=== PATIENT | female | born 1950 | race Caucasian/White ===

== ENCOUNTER 2022-03-23 08:37 | Outpatient (CLI) | payer MEDICARE, SELFPAY ==
[2022-03-23 18:52] LABS: Alanine Aminotransferase 30 U/L (6-35); Albumin Level 4.4 g/dL (3.5-5.1); Alkaline Phosphatase 106 U/L (38-126); Anion Gap 7 mmol/L (8-16); Aspartate Amino Transferase 55 U/L (14-36); Bilirubin,Total 0.8 mg/dL (0.2-1.3); Blood Urea Nitrogen 16 mg/dL (7-17); Calcium 9.4 mg/dL (8.4-10.2); Carbon Dioxide 28 mmol/L (22-30); Chloride 107 mmol/L (98-107); Cholesterol 170 mg/dL (0-200); Estimated Glomerular Filt Rate 55; Glucose 108 mg/dL (65-110); HDL Direct 46 mg/dL; Potassium 4.6 mmol/L (3.4-5.0); Sodium 142 mmol/L (137-145); Triglycerides 157 mg/dL (<150)
[2022-03-23 18:58] LABS: Basophils Percent Auto 0.5 % (0.2-1.2); Eosinophils Absolute Auto 0.1 K/mm3 (0-0.3); Eosinophils Percent Auto 1.6 % (0-4.4); Hematocrit 46.7 % (37.0-47.0); Immature Granulocyte Absolute 0.01 K/mm3 (0.00-0.031); Immature Granulocyte Percent A 0.2 % (0-0.5); Lymphocytes Percent Auto 30.5 % (18.3-44.2); Mean Corpuscular HGB Conc 32.1 g/dl (32-36); Mean Corpuscular Hemoglobin 29.6 pg (26-34); Mean Corpuscular Volume 92.3 fl (80-100); Mean Platelet Volume 11.1 fl (7.4-10.4); Monocytes Absolute Auto 0.6 K/mm3 (0.1-0.6); Monocytes Percent Auto 10.2 % (2.6-8.5); Neutrophils Absolute Auto 3.2 K/mm3 (1.3-6.7); Platelet Count Result 240 k/mm3 (150-375); Red Blood Count 5.06 M/mm3 (4.2-5.4); Red Cell Distribution Width 13.6 % (11.5-14.5); White Blood Count 5.6 K/mm3 (4.5-10.0)
[2022-03-23 19:04] LABS: LDL Cholesterol Direct 77 mg/dL
== END 2022-03-23 08:38 | disposition home or self-care (01) ==
LOC: ANHBWCLAB 08:41
PROVIDERS: PCP Family Medicine; Visit Provider Family Medicine
DX: E66.9 Obesity, unspecified (principal)
CPT/HCPCS: 36415; 80053; 80061; 85025

== ENCOUNTER 2022-05-04 08:58 | Outpatient (CLI) | payer MEDICARE, SELFPAY ==
[2022-05-04 20:48] LABS: Alanine Aminotransferase 27 U/L (6-35); Albumin Level 4.3 g/dL (3.5-5.1); Alkaline Phosphatase 103 U/L (38-126); Aspartate Amino Transferase 41 U/L (14-36); Bilirubin,Total 0.6 mg/dL (0.2-1.3)
[2022-05-04 20:54] LABS: Hepatitis B Surface Antigen Negative (Negative)
[2022-05-04 21:00] LABS: HAV RESULT Negative (Negative); Hepatitis B Core IgM Result Negative (Negative)
[2022-05-04 21:11] LABS: Hepatitis C Virus Antibody Negative (Negative)
== END 2022-05-04 08:59 | disposition home or self-care (01) ==
LOC: ANHBWCLAB 09:00
PROVIDERS: PCP Family Medicine; Visit Provider Family Medicine
DX: I16.0 Hypertensive urgency (principal); R74.01 Elevation of levels of liver transaminase levels
CPT/HCPCS: 36415; 80074; 80076

== ENCOUNTER 2022-05-16 09:01 | Outpatient (CLI) | payer MEDICARE, SELFPAY ==
--- NOTE | ~2022-05-16 | US_ITS ---
Limited Abdominal Sonogram: Real-time sonographic imaging of the right upper quadrant was performed. Clinical History: Abnormal LFTs Findings: The liver appears echogenic, with no evidence of mass lesion or bile duct dilatation. Main portal vein demonstrates normal direction of flow. The gallbladder is well distended, and appears no rmal with no evidence of gallstone or wall thickening. The common bile duct measures 6 mm. The visua lized pancreas, aorta, and IVC are unremarkable. Impression: Diffuse fatty infiltration of the liver. Reviewed, dictated and finalized at location M. T CATCHER Impression: Diffuse fatty infiltration of the liver.
== END 2022-05-16 09:02 | disposition home or self-care (01) ==
PROVIDERS: PCP Family Medicine; Visit Provider Family Medicine
DX: R74.01 Elevation of levels of liver transaminase levels (principal); K76.0 Fatty (change of) liver, not elsewhere classified
CPT/HCPCS: 76705

== ENCOUNTER 2022-05-27 10:31 | Outpatient (CLI) | payer MEDICARE, SELFPAY ==
--- NOTE | ~2022-05-27 | MM_ITS ---
EXAMINATION: MM screening nhan BI w micky HISTORY: Screening mammogram TECHNIQUE: Craniocaudal and mediolateral oblique 3-D tomosynthesis images were obtained and synthetic 2-D images were generated. CAD analysis was submitted and interpreted. COMPARISON: 03/30/2014 bilateral screening mammogram BREAST PARENCHYMAL COMPOSITION: The breasts are almost entirely fatty. FINDINGS: There is no evidence of suspicious mass, calcification, or architectural distortion to sugg est malignancy in either breast. There has been no suspicious interval change. IMPRESSION: 1. No mammographic evidence of malignancy. 2. Recommend routine screening mammography in one year. BI-RADS Category 1: Negative Reviewed, dictated and finalized at location A. IO ENGINEER
== END 2022-05-27 10:32 | disposition home or self-care (01) ==
LOC: ANHIMG 10:33
PROVIDERS: PCP Family Medicine; Visit Provider Family Medicine
DX: Z12.31 Encounter for screening mammogram for malignant neoplasm of breast (principal)
CPT/HCPCS: 77063; 77067

== ENCOUNTER 2022-07-05 07:48 | Outpatient (CLI) | payer MEDICARE, SELFPAY ==
--- NOTE | ~2022-07-05 | DEXA_ITS ---
Bone Density Report Name: ANTONY VALENZUELA Age: 71 Sex: Female Ethnicity: White Date of : 1950 Indication: postmenopausal; screening for osteoporosis; parental hip fracture; Referring Provider: SANDEEP GUTIERREZ Study: Bone densitometry was performed. Exam Date: July 05, 2022 Accession number: [id number] Bone Density: Region BMD T-score Z-score Classification AP Spine(L1-L4) 1.208 1.5 3.7 Normal Femoral Neck (Left) 0.686 -1.5 0.5 Osteopenia Total Hip (Left) 0.958 0.1 1.8 Normal Femoral Neck (Right) 0.726 -1.1 0.8 Osteopenia Total Hip (Right) 0.963 0.2 1.8 Normal Total Hip Mean 0.960 0.2 1.8 Normal World Health Organization criteria for BMD impression classify patients as: Normal (T-score at or above -1.0), Osteopenia (T-score between -1.0 and -2.5), or Osteoporosis (T-score at or below -2.5). 10-year Fracture Risk(1): Major Osteoporotic Fracture 15% Hip Fracture 4.8% Reported Risk Factors: [place] (), Neck BMD=0.686, BMI=34.6, parental fracture (1) FRAX(R) Version 3.08. Fracture probability calculated for an untreated patient. Fracture probability may be lower if the patient has received treatment. Clinical Information Provided by Patient: Parent has had a hip fracture Has used the following medications: Calcium Patient maximum height was 65 Menopause Age: 44 Drinks caffeinated beverages Onset of menses at age 9 Number of children 2 Impression: The patient has low bone mass, based on the Left Femoral Neck T-score. The patient has an estimated ten-year risk of hip fracture of 4.8% and an estimated ten-year risk of major fracture of 15%, based on the WHO FRAX algorithm. The patient has risk factors, including: parental hip fracture. Discussion: BONE DENSITY IS LOW AT ONE OR MORE SKELETAL SITES. THE PATIENT'S BMD AND CLINICAL RISK FACTORS CONTRIBUTE TO THIS PATIENT'S INCREASED RISK OF FRACTURE. This patient's lowest T-score is low at one or more skeletal sites. It meets the World Health Organization's (WHO) criteria for ?low bone mass? (T-score between -1.0 and -2.5). The patient's 10-year risk of hip fracture as calculated by FRAX exceeds the threshold where pharmacological therapy is recommended by the National Osteoporosis Foundation (NOF). However, all treatment decisions require clinical judgment and consideration of individual patient factors, including patient preferences, comorbidities, previous drug use, risk factors not captured in the FRAX model (e.g., frailty, falls, vitamin D deficiency, increased bone turnover, interval significant decline in bone density) and possible under or overestimation of fracture risk by FRAX. The patient should follow a healthful lifestyle (good nutrition with adequate calcium and vitamin D, and appropriate weight-bearin
== END 2022-07-05 07:49 | disposition home or self-care (01) ==
LOC: ANHIMG 07:49
PROVIDERS: PCP Family Medicine; Visit Provider Family Medicine
DX: Z78.0 Asymptomatic menopausal state (principal); M85.852 Other specified disorders of bone density and structure, left thigh; M85.851 Other specified disorders of bone density and structure, right thigh
CPT/HCPCS: 77080

== ENCOUNTER 2023-03-29 09:50 | Outpatient (CLI) | payer MEDICARE, SELFPAY ==
[2023-03-29 21:01] LABS: Anion Gap 6 mmol/L (8-16); Blood Urea Nitrogen 17 mg/dL (7-17); Calcium 9.7 mg/dL (8.4-10.2); Carbon Dioxide 28 mmol/L (22-30); Chloride 105 mmol/L (98-107); Cholesterol 194 mg/dL (0-200); Estimated Glomerular Filt Rate 49; Glucose 96 mg/dL (65-110); HDL Direct 61 mg/dL; Potassium 4.4 mmol/L (3.4-5.0); Sodium 139 mmol/L (137-145); Triglycerides 153 mg/dL (<150)
[2023-03-29 21:08] LABS: Basophils Percent Auto 0.3 % (0.2-1.2); Eosinophils Absolute Auto 0.1 K/mm3 (0-0.3); Hematocrit 46.6 % (37.0-47.0); Hemoglobin 14.6 g/dL (12.0-15.0); Immature Granulocyte Absolute 0.01 K/mm3 (0.00-0.031); Immature Granulocyte Percent A 0.2 % (0-0.5); Lymphocytes Percent Auto 26.8 % (18.3-44.2); Mean Corpuscular HGB Conc 31.3 g/dl (32-36); Mean Corpuscular Hemoglobin 29.7 pg (26-34); Mean Corpuscular Volume 94.9 fl (80-100); Mean Platelet Volume 11.2 fl (7.4-10.4); Monocytes Absolute Auto 0.6 K/mm3 (0.1-0.6); Monocytes Percent Auto 9.4 % (2.6-8.5); Neutrophils Absolute Auto 3.7 K/mm3 (1.3-6.7); Neutrophils Percent Auto 62.3 % (45.5-73.1); Platelet Count Result 256 k/mm3 (150-375); Red Blood Count 4.91 M/mm3 (4.2-5.4); Red Cell Distribution Width 13.7 % (11.5-14.5)
[2023-03-29 21:12] LABS: LDL Cholesterol Direct 85 mg/dL
== END 2023-03-29 09:51 | disposition home or self-care (01) ==
PROVIDERS: PCP Nurse Practitioner Adult Health; Visit Provider Nurse Practitioner Adult Health
DX: I10 Essential (primary) hypertension (principal)
CPT/HCPCS: 36415; 80048; 80061; 85025

== ENCOUNTER 2023-10-10 08:15 | Outpatient (CLI) | payer MEDICARE, SELFPAY ==
[2023-10-10 19:07] LABS: Basophils Percent Auto 0.6 % (0.2-1.2); Eosinophils Absolute Auto 0.1 K/mm3 (0-0.3); Eosinophils Percent Auto 2.1 % (0-4.4); Hematocrit 44.4 % (37.0-47.0); Immature Granulocyte Absolute 0.02 K/mm3 (0.00-0.031); Immature Granulocyte Percent A 0.4 % (0-0.5); Lymphocytes Absolute Auto 1.49 K/mm3 (0.9-3.2); Lymphocytes Percent Auto 31.3 % (18.3-44.2); Mean Corpuscular HGB Conc 31.5 g/dl (32-36); Mean Corpuscular Hemoglobin 30.2 pg (26-34); Mean Corpuscular Volume 95.7 fl (80-100); Monocytes Absolute Auto 0.6 K/mm3 (0.1-0.6); Monocytes Percent Auto 11.6 % (2.6-8.5); Neutrophils Absolute Auto 2.6 K/mm3 (1.3-6.7); Platelet Count Result 200 k/mm3 (150-375); Red Blood Count 4.64 M/mm3 (4.2-5.4); Red Cell Distribution Width 14.2 % (11.5-14.5); White Blood Count 4.8 K/mm3 (4.5-10.0)
[2023-10-10 20:09] LABS: Alanine Aminotransferase 12 U/L (6-35); Albumin Level 4.2 g/dL (3.5-5.1); Alkaline Phosphatase 90 U/L (38-126); Anion Gap 5 mmol/L (4-12); Aspartate Amino Transferase 63 U/L (14-36); Bilirubin,Total 0.7 mg/dL (0.2-1.3); Blood Urea Nitrogen 20 mg/dL (7-17); Calcium 9.4 mg/dL (8.4-10.2); Carbon Dioxide 29 mmol/L (22-30); Chloride 105 mmol/L (98-107); Cholesterol 166 mg/dL (0-200); Estimated Glomerular Filt Rate 54; Glucose 77 mg/dL (65-110); HDL Direct 55 mg/dL; Magnesium 2.2 mg/dL (1.6-2.3); Potassium 4.2 mmol/L (3.4-5.0); Sodium 139 mmol/L (137-145); Triglycerides 174 mg/dL (<150)
[2023-10-10 20:19] LABS: LDL Cholesterol Direct 84 mg/dL
[2023-10-10 20:21] LABS: Vitamin D 25 Hydroxy 49.5 ng/mL
== END 2023-10-10 08:16 | disposition home or self-care (01) ==
PROVIDERS: PCP Nurse Practitioner Adult Health; Visit Provider Nurse Practitioner Adult Health
DX: I10 Essential (primary) hypertension (principal); M85.80 Other specified disorders of bone density and structure, unspecified site
CPT/HCPCS: 36415; 80053; 80061; 82306; 83735; 84443; 85025

== ENCOUNTER 2024-04-03 10:35 | Outpatient (CLI) | payer MEDICARE, SELFPAY ==
[2024-04-03 19:05] LABS: Basophils Percent Auto 0.5 % (0.2-1.2); Eosinophils Absolute Auto 0.1 K/mm3 (0-0.3); Eosinophils Percent Auto 0.6 % (0-4.4); Hematocrit 47.3 % (37.0-47.0); Hemoglobin 15.1 g/dL (12.0-15.0); Immature Granulocyte Absolute 0.02 K/mm3 (0.00-0.031); Immature Granulocyte Percent A 0.2 % (0-0.5); Lymphocytes Percent Auto 13.6 % (18.3-44.2); Mean Corpuscular HGB Conc 31.9 g/dl (32-36); Mean Corpuscular Hemoglobin 30.4 pg (26-34); Mean Corpuscular Volume 95.2 fl (80-100); Mean Platelet Volume 11.1 fl (7.4-10.4); Monocytes Absolute Auto 0.8 K/mm3 (0.1-0.6); Monocytes Percent Auto 10.4 % (2.6-8.5); Neutrophils Absolute Auto 6.1 K/mm3 (1.3-6.7); Neutrophils Percent Auto 74.7 % (45.5-73.1); Platelet Count Result 228 k/mm3 (150-375); Red Blood Count 4.97 M/mm3 (4.2-5.4); Red Cell Distribution Width 13.9 % (11.5-14.5); White Blood Count 8.1 K/mm3 (4.5-10.0)
[2024-04-03 19:30] LABS: Alanine Aminotransferase 18 U/L (6-35); Albumin Level 4.4 g/dL (3.5-5.1); Alkaline Phosphatase 104 U/L (38-126); Anion Gap 2 mmol/L (4-12); Aspartate Amino Transferase 44 U/L (14-36); Bilirubin,Total 0.7 mg/dL (0.2-1.3); Blood Urea Nitrogen 17 mg/dL (7-17); Calcium 9.6 mg/dL (8.4-10.2); Carbon Dioxide 30 mmol/L (22-30); Chloride 107 mmol/L (98-107); Cholesterol 177 mg/dL (0-200); Estimated Glomerular Filt Rate 54; Glucose 100 mg/dL (65-110); HDL Direct 67 mg/dL; Magnesium 2.3 mg/dL (1.6-2.3); Potassium 4.6 mmol/L (3.4-5.0); Sodium 139 mmol/L (137-145); Triglycerides 151 mg/dL (<150)
[2024-04-03 19:41] LABS: LDL Cholesterol Direct 68 mg/dL
== END 2024-04-03 10:36 | disposition home or self-care (01) ==
LOC: ANHBWCLAB 10:37
PROVIDERS: PCP Nurse Practitioner Adult Health; Visit Provider Nurse Practitioner Adult Health
DX: N39.41 Urge incontinence (principal); I10 Essential (primary) hypertension
CPT/HCPCS: 36415; 80053; 80061; 83735; 85025

== ENCOUNTER 2024-10-02 09:29 | Outpatient (CLI) | payer MEDICARE, SELFPAY ==
[2024-10-02 21:15] LABS: Alanine Aminotransferase 15 U/L (6-35); Albumin Level 4.4 g/dL (3.5-5.1); Alkaline Phosphatase 91 U/L (38-126); Anion Gap 9 mmol/L (4-12); Aspartate Amino Transferase 46 U/L (14-36); Bilirubin,Total 0.8 mg/dL (0.2-1.3); Blood Urea Nitrogen 16 mg/dL (7-17); Calcium 9.8 mg/dL (8.4-10.2); Carbon Dioxide 26 mmol/L (22-30); Chloride 106 mmol/L (98-107); Cholesterol 186 mg/dL (0-200); Estimated Glomerular Filt Rate 51; Glucose 94 mg/dL (65-110); HDL Direct 63 mg/dL; Magnesium 2.3 mg/dL (1.6-2.3); Potassium 4.3 mmol/L (3.4-5.0); Sodium 141 mmol/L (137-145); Total Protein 7.4 g/dL (6.3-8.2); Triglycerides 123 mg/dL (<150)
[2024-10-02 21:26] LABS: LDL Cholesterol Direct 76 mg/dL
== END 2024-10-02 09:30 | disposition home or self-care (01) ==
LOC: ANHBWCLAB 09:34
PROVIDERS: PCP Nurse Practitioner Adult Health; Visit Provider Nurse Practitioner Adult Health
DX: I10 Essential (primary) hypertension (principal)
CPT/HCPCS: 36415; 80053; 80061; 83735

== ENCOUNTER 2024-11-23 19:02 | Emergency (ER) | payer MEDICARE, SELFPAY ==
--- NOTE | ~2024-11-23 | XR_ITS ---
EXAM: XR wrist LT min 3V DATE: 11/23/2024 19:23 HISTORY: fall [employer]. Pain to distal radius . COMPARISON: None available. FINDINGS: Osteopenia. Oblique nondisplaced radial styloid fracture. Ossific fragment along the dorsa l carpal bones in the lateral view. No lytic or blastic lesion. Mild scattered degenerative changes. No erosion or periosteal change. Soft tissues within normal limits. IMPRESSION: Nondisplaced radial styloid fracture. Possible triquetral fracture. Reviewed, dictated and finalized at location K.
[2024-11-23 19:07] VITALS: BP 180/90; PULSE 83; RESP 18; TEMP 36.3; O2SAT 100
--- NOTE | 2024-11-23 19:14 | ED_ITS ---
HPI - Extremity Injury (Upper) General Chief Complaint: Extremity Injury, Upper Stated Complaint: Left Arm pain Time Seen by Provider: 11/23/24 19:11 Source: patient and RN notes reviewed Mode of arrival: ambulatory Limitations: no limitations History of Present Illness HPI narrative: Patient presents today complaining of left wrist pain. Just prior to arrival, patient tripped and fell at home onto her left wrist. Denies numbness or tingling. She took some [id number] medication at home and currently rates her pain 5/10. Pain increases with range of motion. She is left-hand dominant. Related Data Home Medications ?Medication ?Instructions ?Recorded ?Confirmed ?Last Taken ?Type calcium 600 mg (as 1 tablet PO DAILY 10/02/24 10/02/24 Unknown History carbonate)-vitamin D3 20 mcg (800 unit) tablet multivitamin with minerals-folic tablet PO 10/02/24 10/02/24 Unknown History acid 0.4 mg tablet (One-A-Day Women's 50 Plus) vit A 300 mcg-C 200 mg-E 27 1 tablet PO DAILY 10/02/24 10/02/24 Unknown History mg-lutein 2 mg and minerals tablet (Vision Formula (with lutein)) Allergies Allergy/AdvReac Type Severity Reaction Status Date / Time No Known Allergies Allergy Mild Unverified 10/02/24 08:54 PMFSH Social History Social History Smoking status: Never smoker Alcohol intake: never Substance use: never Substance use type: does not use Lack of Transportation: No Lack of Food: Never True Current Housing: I Have Housing Concerned About Future Housing: No Difficulty Paying Gas/Electric Bills: No Difficulty Paying for Meds: No Currently Unemployed: No Education: High School Diploma/GED Difficulty w/ Childcare or Family Care: No Living arrangements: with family Gender identity (if verbalized by the patient): Female Comments At time of signature, I have reviewed and agree with nursing past medical, surgical, social and family history unless otherwise noted. Please see nursing chart for further information. There is no relevant family history pertinent to the presenting complaint Exam Narrative: GENERAL: Well-appearing, well-nourished, and in no acute distress. HEAD: Normocephalic, atraumatic. EYES: EOMI. No redness or drainage. Conjunctivae normal. ENT: Mucous membranes pink and moist. NECK: Normal AROM. CHEST: No respiratory distress. EXTREMITIES: Left wrist: Mild tenderness to the distal radius. No tenderness to the distal ulna. Very mild edema noted. No deformity, ecchymosis, erythema noted. No tenderness to the hand or fingers. Distal sensation intact. Capillary refill normal. Radial pulse normal. SKIN: Warm, dry, no rash. Capillary refill normal. Normal skin turgor. NEURO: No focal deficits. Alert and oriented x3. Gait steady. PSYCH: Normal affect. No signs of depression or anxiety. Course Course Level of Care: Express Care Visit Vital Signs Vital signs: Vital Signs Temperature 97.3 F L 11/23/24 19:07 Pulse Rate 83 11/23/24 19:07 Respiratory Rate 18 11/23/24 19:07 Blood Pressure 180/90 H 11/23/24 19:07 Pulse Oximetry 100 11/23/24 19:07 Oxygen Delivery Room Air 11/23/24 19:07 Temperature 97.3 F L 11/23/24 19:07 Pulse Rate 83 11/23/24 19:07 Respiratory Rate 18 11/23/24 19:07 Blood Pressure 180/90 H 11/23/24 19:07 Pulse Oximetry 100 11/23/24 19:07 Oxygen Delivery Room Air 11/23/24 19:07 Reviewed Procedures Orthopedic Splinting/Casting Injury #1: Splinting/Casting Date: 11/23/24 Splinting/Casting Time: 19:45 Side: left Upper Extremity Injury Location: wrist OCL: short arm Pre-Procedure Neuro Vascular Exam: normal Post-Procedure Neuro Vascular Exam: normal Other Orthopedic Equipment: other (Sling) Additional Comments: placed by [facility] - Extremity Injury (Upper) [facility] Narrative Medical decision making narrative: 74-year-old female patient presents today after a trip and fall at home just prior to arrival on to her left wrist. She is left-hand dominant. She took some OTC medication at home without much improvement currently rates her pain 5/10. Denies numbness or tingling. Upon exam, patient has tenderness to the distal radius without edema, deformity, ecchymosis. Neurovascularly intact. X- ray shows nondisplaced fracture of the radial styloid and possible triquetral fracture. Patient does not have obvious tenderness to the triquetrum. Placed in an OCL with recommendation to follow-up with orthopedics. Vital signs stable, although blood pressure is elevated, likely due to pain, although patient is treated for blood pressure with amlodipine. Disc and report provided. Anticipatory guidance given. Differential Diagnosis Differential diagnosis: Likely sprain and strain of wrist and fracture of wrist Imaging Data Radiologist's impression: ITS Impressions Wrist X-Ray 11/23/24 19:33 IMPRESSION: Nondisplaced radial styloid fracture. Possible triquetral fracture. Critical Care Time Critical Care Time Critical Care Time: No Discharge Plan Discharge Clinical Impression: Distal radius fracture, left Qualifiers: Encounter type: initial encounter Fracture type: closed Fracture morphology: unspecified fracture morphology Qualified Code(s): S52.502A - Unspecified fracture of the lower end of left radius, initial encounter for closed fracture Patient Disposition: Home Condition: Stable Instructions: Wrist Fracture in Adults (ED) Additional Instructions: Your x-ray shows a fracture in your wrist. You have been placed in a temporary splint. Please keep this dry and intact until follow-up with orthopedics. Elevate and ice the wrist. Take Tylenol or ibuprofen for pain, if able. Call tomorrow and schedule a follow-up visit. Your blood pressure was elevated above 120/80 today at Urgent Care. This puts you above the threshold for follow up. Please schedule a followup visit with your personal physician as soon as possible, for further evaluation and treatment. Even blood pressure exceeding 120/80 may indicate pre-hypertension. Patient Language: Burkinan Prescriptions: No Action calcium carbonate-vitamin D3 600 mg-20 mcg (800 unit) tablet 1 tablet PO DAILY multivit with min-folic acid [One-A-Day Women's 50 Plus] 0.4 mg tablet PO Vision Formula (with lutein) 300 mcg-200 mg-27 mg-2 mg tablet 1 tablet PO DAILY Rx Instructions: administer after a meal amlodipine 10 mg tablet See Rx Instructions .ROUTE .COMPLEX Qty: 90 3RF Dose Instruction: TAKE 1 TABLET BY MOUTH DAILY Rx Instructions: TAKE 1 TABLET BY MOUTH DAILY Follow-up/Referrals: Demond Delaney MD [Physician] - Ruthie Chang APRN [Primary Care Provider] - Time of Disposition: 19:45
== END 2024-11-23 20:07 | disposition home or self-care (01) ==
PROVIDERS: Emergency Provider Nurse Practitioner; PCP Nurse Practitioner Adult Health
DX: S52.502A Unspecified fracture of the lower end of left radius, initial encounter for closed fracture (principal); W01.0XXA Fall on same level from slipping, tripping and stumbling without subsequent striking against object, initial encounter
CPT/HCPCS: 29125; 73110; 99214; A4565; G0463

== ENCOUNTER 2024-12-19 09:49 | Outpatient (CLI) | payer MEDICARE, SELFPAY ==
--- NOTE | 2024-12-19 10:50 | ECG_ITS ---
Test Date: 2024-12-19 11:02:56 Measurements Intervals [place] Rate: 78 P: 54 NM: 178 QRS: -4 QRSD: 87 T: 41 QT: 359 QTc: 409 Interpretive Statements SINUS RHYTHM POSSIBLE ANTERIOR MYOCARDIAL INFARCTION INFERIOR INFARCT, AGE INDETERMINATE ABNORMAL ECG No previous ECG available for comparison Electronically Signed On 12-19-2024 11:12:41 CDT by Benjamin Curtis D.O.
[2024-12-19 12:22] LABS: Hematocrit 45.0 % (37.0-47.0); Hemoglobin 14.8 g/dL (12.0-15.0); Immature Granulocyte Percent A 0.2 % (0-0.5); Lymphocytes Absolute Auto 1.30 K/mm3 (0.9-3.2); Mean Corpuscular HGB Conc 32.9 g/dl (32-36); Mean Corpuscular Hemoglobin 30.3 pg (26-34); Mean Corpuscular Volume 92.2 fl (80-100); Nucleated Red Blood Cells Absolute Auto 0.000 K/mm3 (0.0-0.012); Nucleated Red Blood Cells Perc 0.0 % (0.0-0.2); Platelet Count Result 221 k/mm3 (150-375); Red Blood Count 4.88 M/mm3 (4.2-5.4); White Blood Count 4.5 K/mm3 (4.5-10.0)
[2024-12-19 12:37] LABS: INR 0.9; Prothrombin Time 12.7 Seconds (11.1-14.7)
[2024-12-19 12:38] LABS: Partial Thromboplastin Time 24.6 Seconds (22.3-36.8)
[2024-12-19 12:48] LABS: Alanine Aminotransferase 14 U/L (6-35); Albumin Level 4.4 g/dL (3.5-5.1); Alkaline Phosphatase 85 U/L (38-126); Anion Gap 7 mmol/L (4-12); Aspartate Amino Transferase 25 U/L (14-36); Bilirubin,Total 0.7 mg/dL (0.2-1.3); Blood Urea Nitrogen 20 mg/dL (7-17); Calcium 9.6 mg/dL (8.4-10.2); Carbon Dioxide 29 mmol/L (22-30); Chloride 105 mmol/L (98-107); Estimated Glomerular Filt Rate 52; Glucose 105 mg/dL (65-110); Potassium 3.8 mmol/L (3.4-5.0); Sodium 141 mmol/L (137-145); Total Protein 7.2 g/dL (6.3-8.2)
== END 2024-12-19 09:50 | disposition home or self-care (01) ==
LOC: ANHSURGERY 09:54
PROVIDERS: PCP Nurse Practitioner Adult Health; Visit Provider Urology
DX: Z01.818 Encounter for other preprocedural examination (principal); N81.4 Uterovaginal prolapse, unspecified; I10 Essential (primary) hypertension
CPT/HCPCS: 36415; 80053; 85025; 85610; 85730; 86850; 86900; 86901; 93005

== ENCOUNTER 2024-12-29 02:35 | Day surgery (SDC) | payer MEDICARE, SELFPAY ==
[2024-12-19 10:04] VITALS: BP 131/59; PULSE 85; RESP 16; TEMP 37.1; O2SAT 98; BMI 31.8
--- NOTE | 2024-12-19 10:20 | PC.NURSE ---
Report to the Outpatient Waiting Room, entrance under the green pavilion located off [facility], at time __6:00AM___ on date ___12/29/24__. Planned Procedure Time: ___7:30AM___.? Time changes happen often and if your time is changed the preop area will call you the afternoon before. - You and your visitor will be asked to self-screen and do not enter if you have any COVID symptoms. Please call surgeon if you need to reschedule. - A mask is optional within the hospital at this time. Patients may have clear liquids (water, carbonated beverages, clear teas, apple juice) until 3 hours prior to surgery (4:30AM) with a maximum of 20 ounces. - No food from midnight until time of surgery and no smoking, or chewing tobacco (or any form of nicotine). No chewing gum, candy or mints. Take only the following medications with a SIP of water on the morning of surgery: ____AMLODIPINE DO NOT STOP ANY OF YOUR OTHER PRESCRIPTION MEDICATIONS PRIOR TO SURGERY EXCEPT THE FOLLOWING Hold all vitamins and supplements for 3 days per anesthesiologist. Medications to discontinue per physician ____HOLD ALL VITAMINS/SUPPLEMENTS 3 DAYS PRE-OP PER DR CHEW Date to take last dose 12/21/24 Please no make-up, nail ukrainian, hairspray, perfume, deodorant, or body powder the day of surgery.? No jewelry (including any body piercings) or valuables the day of surgery, leave them at home.? Please take a shower or bath the night before, or the morning of, surgery with an antibacterial soap.? Wear comfortable, loose fitting clothing.? - Jewelry must be removed prior to entering the operating room.? Rings and piercings that are not removed may be cut off. - The hospital will not accept responsibility for valuables.? - Please leave all valuables, including medications, at home the day of surgery. If you are going home after surgery, a licensed milk pickup driver must drive you home.? - NO public transportation without another adult if you receive anesthesia. - We recommend that an adult stay with you for 24 hours following discharge. - We also recommend that you do not drive, make important decision, drink alcoholic beverages, or take any drugs that were not prescribed by your health care provider for at least 24 hours after your discharge time. Follow any additional instructions given to you from your surgeon. Telephone instructions given to ___PATIENT and asked if any additional questions and then verbalized understanding. Patient advised to call surgeon office or pre surgery nurse liaison [phone] if any additional questions.
--- NOTE | 2024-12-24 12:54 | PM.IMHP ---
H&P: HPI History of Present Illness Date/Time: 12/24/24 12:54 Chief Complaint: Uterine prolapse Narrative: 74-year-old female with uterine prolapse admitted for robotic supracervical hysterectomy and bilateral salpingectomy go oophorectomy. She will undergo sacral colpopexy with Dr. Hardin as well risks and benefits reviewed in great detail. She received the ACOG handout and the de Tonio handout. She had all questions answered. She asked to proceed Review of Systems Review of Systems: All systems reviewed & are unremarkable except as noted in HPI and below PMFSH Past Medical History Medical History History of blood clots Family History Family History Mother Cerebrovascular accident Sibling Cerebrovascular accident Social History Social History Smoking status: Never smoker Alcohol intake: never Substance use: never Substance use type: does not use Current Housing: Decline to Answer Concerned About Future Housing: Decline to Answer Difficulty Paying Gas/Electric Bills: Decline to Answer Difficulty Paying for Meds: Decline to Answer Currently Unemployed: Decline to Answer Education: Decline to Answer Difficulty w/ Childcare or Family Care: Decline to Answer Living arrangements: alone Gender identity (if verbalized by the patient): Female Spiritual care concerns: No Meds Home Medications and Allergies Home Medications ?Medication ?Instructions ?Recorded ?Confirmed ?Type amlodipine 10 mg tablet See Rx Instructions .Route 05/19/24 12/19/24 Rx .COMPLEX #90 tabs calcium 600 mg (as 1 tablet PO DAILY 10/02/24 12/19/24 History carbonate)-vitamin D3 20 mcg (800 unit) tablet multivitamin with minerals-folic 1 tablet PO .DAY 10/02/24 12/19/24 History acid 0.4 mg tablet (One-A-Day Women's 50 Plus) vit A 300 mcg-C 200 mg-E 27 1 tablet PO DAILY 10/02/24 12/19/24 History mg-lutein 2 mg and minerals tablet (Vision Formula (with lutein)) acetaminophen 500 mg capsule 500 mg PO Q6H PRN pain 12/19/24 12/19/24 History Allergies Allergy/AdvReac Type Severity Reaction Status Date / Time No Known Allergies Allergy Mild Unverified 12/19/24 09:59 Exam Const: General: cooperative, healthy appearing and comfortable HENMT: Head: normal to inspection Resp: Effort & Inspection: normal respiratory effort Cardio: Rate: regular rate Rhythm: regular rhythm Heart sounds: S1 normal heart sound present and S2 normal heart sound present GI: Inspection: normal to inspection : External Female Exam: normal external appearance Speculum Exam - Vagina: normal appearance of the vagina Speculum Exam - Cervix: normal appearance of the cervix (3rd degree prolapse) Bimanual exam- vagina & uterus: non-tender Bimanual Exam- Adnexa, other: normal adnexae Assessment and Plan Assessment and plan (1) Uterine prolapse: Code(s): N81.4 - Uterovaginal prolapse, unspecified Status: Acute Plan Proceed with robotic supracervical hysterectomy and bilateral salpingo-oophorectomy
--- NOTE | 2024-12-26 09:04 | PM.IMHP ---
H&P: HPI History of Present Illness Date/Time: 12/26/24 09:04 Chief Complaint: POP/POOL Narrative: Note:?Emperatriz Fontenot is a 74-year-old female who presents for a follow-up of pelvic organ prolapse. She has undergone urodynamics testing, which demonstrates stress urinary incontinence. She experiences urinary urgency rarely. She has tried Kegel exercises as a conservative treatment option. She has not had a hysterectomy or other prolapse procedures in the past. She is interested in surgical intervention for her pelvic organ prolapse, specifically sacral colpopexy and urethral sling procedures. These surgeries are scheduled for 12/29/2024. Dr. Aguilera will perform the supracervical hysterectomy during the same surgical session. Review of Systems Review of Systems: All systems reviewed & are unremarkable except as noted in HPI and below PMFSH Past Medical History Medical History History of blood clots Family History Family History Mother Cerebrovascular accident Sibling Cerebrovascular accident Social History Social History Smoking status: Never smoker Alcohol intake: never Substance use: never Substance use type: does not use Current Housing: Decline to Answer Concerned About Future Housing: Decline to Answer Difficulty Paying Gas/Electric Bills: Decline to Answer Difficulty Paying for Meds: Decline to Answer Currently Unemployed: Decline to Answer Education: Decline to Answer Difficulty w/ Childcare or Family Care: Decline to Answer Living arrangements: alone Gender identity (if verbalized by the patient): Female Spiritual care concerns: No Meds Home Medications and Allergies Home Medications ?Medication ?Instructions ?Recorded ?Confirmed ?Type amlodipine 10 mg tablet See Rx Instructions .Route 05/19/24 12/19/24 Rx .COMPLEX #90 tabs calcium 600 mg (as 1 tablet PO DAILY 10/02/24 12/19/24 History carbonate)-vitamin D3 20 mcg (800 unit) tablet multivitamin with minerals-folic 1 tablet PO .DAY 10/02/24 12/19/24 History acid 0.4 mg tablet (One-A-Day Women's 50 Plus) vit A 300 mcg-C 200 mg-E 27 1 tablet PO DAILY 10/02/24 12/19/24 History mg-lutein 2 mg and minerals tablet (Vision Formula (with lutein)) acetaminophen 500 mg capsule 500 mg PO Q6H PRN pain 12/19/24 12/19/24 History Allergies Allergy/AdvReac Type Severity Reaction Status Date / Time No Known Allergies Allergy Mild Unverified 12/19/24 09:59 Exam Narrative: ? - Complete procidentia with cervix 6-7 cm beyond the introitus. - Atrophic vaginal tissues. - Urethral mobility noted. Assessment and Plan Assessment and plan (1) Uterine prolapse: Code(s): N81.4 - Uterovaginal prolapse, unspecified Status: Acute (2) POOL (stress urinary incontinence, female): Code(s): N39.3 - Stress incontinence (female) (male) Status: Acute Plan PLAN: - We discussed the treatment options for pelvic organ prolapse, including observation, pelvic floor muscle exercises, physical therapy, pessary usage, and surgery, as well as each approach's specific risks and benefits. She opts for a sacral colpopexy. We specifically discussed the utilization of robotic sacral colpopexy. ? - She understands the risks of bleeding, infection, recurrence or prolapse, mesh exposure, damage to the bowel or urinary tract, open conversion, de erlinda urinary urgency, urinary retention, post-operative stress urinary incontinence, dyspareunia, back pain, diskitis, and risks of anesthesia. In addition, she was provided written information on the etiology and treatment of pelvic organ prolapse. ? - After an extensive discussion, she agrees to proceed with surgery. - We discussed the treatment options for stress urinary incontinence, including pelvic floor muscle rehabilitation, transurethral bulking agents, and mid-urethral sling procedures. She is most interested in the latter. ? - We discussed the alternatives, benefits, and risks. We discussed specifically the risks of bleeding, infection, failure to correct incontinence, damage to the urinary tract, vaginal mesh extrusion, urinary tract mesh erosion, obstructive voiding requiring a secondary procedure, de erlinda or worsening irritative voiding symptoms, post-operative hip and leg pain, and the risk of anesthesia. We also discussed that treatment of stress incontinence is unlikely to improve overactive bladder symptoms if present. She was also counseled on post-operative activity restrictions. She wishes to proceed.
[2024-12-29] VITALS (10 sets, daily range): BP systolic 121–150; BP diastolic 57–84; PULSE 65–98; RESP 11–23; TEMP 36.1–37; O2SAT 97–100
--- OUTSIDE RECORDS SUMMARY | 2024-12-29 02:38 | XMS_ITS ---
Author Organization Unknown ENCOUNTERS Encounter Performer Location Date Diagnosis Diagnosis Status Outpatient [facility] [address] [place] [address] [id number] Outpatient [facility] [address] [place] [address] [phone] [facility] Outpatient [facility] [address] [place] [address] [id number] [facility] [address] [place] [address] [id number] [facility] [address] [place] [address] [id number] [facility] [address] [place] [address] [id number] [facility] [address] [place] [address] [id number] [facility] [address] [place] [address] [id number] [facility] [address] [place] [address] [id number] [facility] [address] [place] [address] [id number] [facility] [address] [place] [address] [id number] [facility] [address] [place] [address] [id number] [facility] *Note: Encounters from your own facility or health system may be excluded. Allergies, Adverse Reactions, Alerts Allergen Type Severity Identification Date Medications Name Date Quantity Days Supplied GPI Number
[2024-12-29] MEDS: LACTATED RINGERS 1,000 ML 30 ML IV CONT ×2 (06:45→10:05)
[2024-12-29] MEDS: ACETAMINOPHEN 500 MG TABLET 1000 MG PO (07:00)
[2024-12-29] MEDS: KETOROLAC 15 MG/ML VIAL (*BKC) IV PUSH ×2 (07:00→16:21)
--- NOTE | 2024-12-29 07:14 | WPDHPUPDATE1 ---
History and Physical Update Update Date/Time: 12/29/24 07:14 History and Physical has been reviewed, including an updated exam of the patient. There are NO changes in the patient's condition. Risks, benefits, and alternatives have been discussed and questions answered. Patient agrees to proceed with procedure.
--- NOTE | 2024-12-29 07:24 | P.PNAN_ITS ---
Anes - Initial Pre Proc Eval Procedure: Operation Date: 12/29/24 07:30 Proposed Procedures p Robotic Sacrocolpopexy, Possible Urethral Sling, Possible Cystocele and Rectocele Repair - Rojelio Hardin MD s Robotic Assisted Supracervical Hysterectomy with Bilateral Salpingo- oophorectomy - Dallas Gordillo MD Date/Time: 12/29/24 07:24 Surgeon: Rojelio Hardin MD Pre Op Diagnosis: uterine prolpase, cystocele, rectocele, stress inc Patient Data Age: 74 Gender: F Height: 1.65 m Weight: 86.8 kg Last Vital Signs Temp 98.7 F 12/19/24 10:04 Pulse 85 12/19/24 10:04 Resp 16 12/19/24 10:04 BP 131/59 L 12/19/24 10:04 Pulse Ox 98 12/19/24 10:04 O2 Del Method Room Air 12/19/24 10:04 Allergies Allergy/AdvReac Type Severity Reaction Status Date / Time No Known Allergies Allergy Mild Unverified 12/19/24 09:59 Home Medications ?Medication ?Instructions ?Recorded ?Confirmed ?Type amlodipine 10 mg tablet See Rx Instructions .Route 0 05/19/24 12/19/24 Rx .COMPLEX #90 tabs calcium 600 mg (as 1 tablet PO DAILY 10/02/24 0 12/19/24 History carbonate)-vitamin D3 20 mcg (800 unit) tablet multivitamin with minerals-folic 1 tablet PO .DAY 09/2112/19/24 History acid 0.4 mg tablet (One-A-Day Women's 50 Plus) vit A 300 mcg-C 200 mg-E 27 1 tablet PO DAILY 10/02/24 12/19/24 History mg-lutein 2 mg and minerals tablet (Vision Formula (with lutein)) acetaminophen 500 mg capsule 500 mg PO Q6H PRN pain 12/19/24 History Patient hx anesthesia problems: none Family hx anesthesia problems: none Results Review: All pre-operative results and documents have been reviewed as part of the pre- operative evaluation. [facility] [place] Past Medical History Medical History History of blood clots Family History Family History Mother Cerebrovascular accident Sibling Cerebrovascular accident Social History Social History Smoking status: Never smoker Alcohol intake: never Substance use: never Substance use type: does not use Current Housing: Decline to Answer Concerned About Future Housing: Decline to Answer Difficulty Paying Gas/Electric Bills: Decline to Answer Difficulty Paying for Meds: Decline to Answer Currently Unemployed: Decline to Answer Education: Decline to Answer Difficulty w/ Childcare or Family Care: Decline to Answer Living arrangements: with family Gender identity (if verbalized by the patient): Female Spiritual care concerns: No Anes - Eval Final PreProcedure Day of Procedure 12/29/24 07:24 Patient weight: obese Heart: regular rate and rhythm Lungs: clear to auscultation Airway: Mallampati scale class II Neurological: alert and oriented Last oral intake: >/= 8 hours ASA classification: III Emergent: no Anesthetic plan: proceed Anesthesia type and monitoring: general ETT and standard monitoring Results Review: All pre-operative results and documents have been reviewed as part of the pre- operative evaluation. Informed Consent: The patient's anesthetic plan and its attendant risks and benefits were discussed with the patient/family/POA. Questions were solicited and answers provided to the satisfaction of the patient/family/POA.
--- NOTE | 2024-12-29 07:35 | WPDHPUPDATE1 ---
History and Physical Update Update Date/Time: 12/29/24 07:35 History and Physical has been reviewed, including an updated exam of the patient. There are NO changes in the patient's condition. Risks, benefits, and alternatives have been discussed and questions answered. Patient agrees to proceed with procedure.
[2024-12-29] MEDS: ceFAZolin 2 GM in SODIUM CHLORIDE 0.9% IV 50 ML 100 ML IVPB (07:37)
[2024-12-29] MEDS: metroNIDAZOLE 500 MG/ISO 100ML 500 MG/100 ML BAG 100 MG IVPB ×2 (07:37→16:59)
--- NOTE | 2024-12-29 08:27 | S_PTH ---
PATIENT: Emperatriz Fontenot LOC: [facility] [place] U#:[id number] AGE/SX: 74/F ROOM: RE12/29/[address]: Rojelio Hardin MD : 1950 BED: DIS: 12/30/2024 SPEC #: [id number] RECD: 12/29/24 10:09 STATUS: TAMELA RE #: [id number] DIONE: 12/29/24 08:[address]: Dallas Perales DEPT: [facility] Surgical RECD BY: Yamile Lundberg ENTERED: 12/29/24 10:09 SP TYPE: Surgical OTHR DR: MD Ruthie Yanez APRN Tissues: A - Uterus Procedures: Hematoxylin and Eosin Stain Gross and Microscopic Level 5
--- NOTE | 2024-12-29 08:28 | P.OP_ITS ---
Procedure Note - Detailed Date of Procedure 12/29/24 Pre-op Diagnosis uterine prolpase, cystocele, rectocele, stress inc Post-op Diagnosis Same Procedure Performed Robotic supracervical hysterectomy and bilateral salpingo-oophorectomy Surgeon Dallas Gordillo MD Anesthesia General Indications 74-year-old female with complete uterine Findings Complete uterine prolapse. Normal-appearing ovaries tubes Description of Procedure The patient was prepped and draped in the normal sterile fashion placed in the dorsal lithotomy position. Excellent general endotracheal anesthesia weighted speculum was placed in posterior fornix vagina. Anterior lip of the cervix grasped with a single-tooth Craig's cannula inserted attached to the single- tooth to be used later for uterine manipulation. Bladder was emptied of clear urine with 16 Khmer catheter. Weighted speculum was removed the gloves were changed. Dr. Hardin proceeded to dock the robot please see his operative report for full details. The attention was turned to the queen's counsel. The left round ligament was grasped, burned, cut. A bladder flap was formed by sharply dissecting the peritoneum and reflecting the bladder caudally away from the cervix uterus the opposite round ligament which was clamped, burned. Next the left infundibulopelvic structure was skeletonized to remove the left ovary and tube this was serially clamped, burned, cut and brought to the level of previous cut round ligament. In similar fashion on the right to remove the right ovary and tube, the infundibulopelvic structure was skeletonized clamping burning cutting and bringing this to level of previously cut round ligament. The cardinal broad ligaments on the left were then serially skeletonized clamping burning cutting and hugging the cervix uterus until the uterine vessels could be seen on the left these were individually clamped, burned, cut. In similar fashion on the right the cardinal broad ligaments were serially skeletonized clamping burning cutting and bringing these to the level of the uterine vessels these were then clamped, burned, cut. Excellent blanching of the uterus was noted. Supracervical incision made in the uterus tubes and ovaries placed in Endo- Catch. Blood loss at this point was 5cc. Dr. Hardin to from there at this point there were no complications noted Estimated Blood Loss 5 Drains No Packing No Pathology Yes Complications No immediate complications Condition Stable Disposition No change
--- NOTE | 2024-12-29 08:31 | P.DS_ITS ---
DS: Admitting Diagnosis Discharge Date 12/30/2024 Admitting Diagnosis Uterine prolapse/stress urinary incontinence DS: Discharge Diagnosis Discharge Diagnosis (1) Uterine prolapse: Code(s): N81.4 - Uterovaginal prolapse, unspecified Status: Acute (2) POOL (stress urinary incontinence, female): Code(s): N39.3 - Stress incontinence (female) (male) Status: Acute DS: Summary Hospital Course Reason for hospitalization: Patient was admitted on 12/29/2024 for supracervical hysterectomy bilateral salpingo-oophorectomy T OT and sacral colpopexy Hospital Course: The patient's hospital course unremarkable. She remained afebrile. She was up, voiding without the diet, ambulating, and generally without complaints. Time Spent with Patient Time attestation: Total time spent providing and/or coordinating discharge services: Exam Narrative: ? - Complete procidentia with cervix 6-7 cm beyond the introitus. - Atrophic vaginal tissues. - Urethral mobility noted. Const: General: cooperative and comfortable Nutritional Appearance: obese Orientation/consciousness: oriented to person, oriented to place and oriented to time Resp: Effort & Inspection: normal respiratory effort Cardio: Rate: regular rate Rhythm: regular rhythm Heart sounds: S1 normal heart sound present and S2 normal heart sound present GI: Inspection: normal to inspection and incision (Wounds are clean dry and intact) DS: Data Data Completed and Pending Pending studies at discharge: Pending at discharge 12/29/24 08:27 Surgical [PTH] Routine Discharge Plan Discharge Patient Disposition: Home Discharge Instructions: No lifting >20lb, exercise for 6 weeks No tub bath or pool for 2 weeks No intercourse 6 weeks Patient Language: [place] Stand Alone Forms: General Discharge Instructions Follow-up/Referrals: Rojelio Hardin MD [Physician, Urology] Referral Note: 6 weeks as scheduled Discharge Medications: New hydrocodone-acetaminophen 5-325 mg tablet 1 tablet PO Q6H PRN (Reason: pain) Qty: 20 0RF docusate sodium [Colace] 100 mg capsule 100 mg PO BID Qty: 40 0RF Continued calcium carbonate-vitamin D3 600 mg-20 mcg (800 unit) tablet 1 tablet PO DAILY acetaminophen 500 mg capsule 500 mg PO Q6H PRN (Reason: pain) amlodipine 10 mg tablet See Rx Instructions .ROUTE .COMPLEX Qty: 90 3RF Dose Instruction: TAKE 1 TABLET BY MOUTH DAILY Patient Comments: QAM Rx Instructions: TAKE 1 TABLET BY MOUTH DAILY No Action multivit with min-folic acid [One-A-Day Women's 50 Plus] 0.4 mg tablet 1 tablet PO .DAY Vision Formula (with lutein) 300 mcg-200 mg-27 mg-2 mg tablet 1 tablet PO DAILY Rx Instructions: administer after a meal
[2024-12-29] MEDS: BUPIVACAINE/EPINEPHRINE 0.5% 50 ML VIAL 40 ML INFILTRATE (08:51)
[2024-12-29] MEDS: KETOROLAC 30 MG/ML VIAL (*BKC) IV PUSH (09:48)
--- NOTE | 2024-12-29 10:14 | P.OP_ITS ---
Procedure Note - Detailed Date of Procedure 12/29/24 Pre-op Diagnosis uterine prolpase, cystocele, rectocele, stress inc Post-op Diagnosis Same Procedure Performed Robotic assisted laparoscopic sacral colpopexy Urethral sling Cystoscopy Surgeon Rojelio Hardin MD Anesthesia General Indications A woman with uterine prolapse as well as stress incontinence. She desires surgical correction. She is here for the above. She understands risks of bleeding, infection, diskitis, damage to surrounding organs, bowel injury, bowel obstruction, mesh related complications including exposure and extrusion, postoperative voiding dysfunction including incontinence and retention, need for ancillary procedures, dyspareunia, recurrence of prolapse, and other perioperative intraoperative postoperative complications. She agrees to proceed. Findings See below Description of Procedure She was correctly identified. Informed consent obtained. She from the operating room. She was given general anesthesia. She was given appropriate perioperative antibiotics. She was placed a low lithotomy position. Pressure points were padded. A time-out performed. I marked out the skin 3 fingerbreadths cephalad to the umbilicus. I anesthetized the skin. I incised the skin. I dissected down to the fascia. I grasped the fascia with Simran clamps. I entered the fascia sharply in a Reyna type technique. I placed sutures for later fascial closure. I placed a midline trocar. I examined the abdomen. There is no sign of any injury. Under direct vision I placed 2 additional trocars in the right upper quadrant and 2 ad ditional trocars the left upper quadrant. She was placed in steep Trendelenburg. The robot was docked. Her labor union business representative completed their portion of the procedure. Please see that operative report for details. I then sat at the console. With The Sizer in the vagina created plane on the anterior and posterior vaginal wall. I took great care not to injure the vagina, bladder, or rectum. I introduced the mesh into the abdomen. I sewed the anterior leaflet of mesh on the anterior vaginal wall. I sewed the posterior leaflet of mesh on the posterior vaginal wall. This was done with several sutures of 2 0 Ringgold-Fransico. I reflected the colon laterally. I opened the posterior peritoneum over the sacral promontory. I carried this into the cul-de-sac. I freed up the edges for later retroperitonealization. I located the anterior longitudinal ligament the sacrum. I cleaned off all fatty tissues. I then tensioned my mesh appropriately. I did a vaginal exam the bedside. I assured prolapse reduction without undue tension. I then sewed the proximal leaflet of mesh onto the anterior longitudinal ligament of the sacrum with several sutures of 2 0 Ringgold-Fransico. I then used a 2 0 Monocryl to completely and meticulously retroperitonealized all mesh. I allowed the colon to go back to its normal anatomic location. There is no sign of any impingement. The specimen was then removed. All ports removed. Fascia was tied down. Additional sutures were placed to close the fascia. Skin was closed with Monocryl and surgical glue. She was repositioned and prepped for urethral sling. I marked out the inner thigh incisions. I anesthetized the skin and made the incisions. I then anesthetized the anterior vaginal wall at the mid urethra. I made a 1 cm incision. I dissected out laterally taking great care not to injure the refilled vaginal wall. I passed the helical trocars. I did this 1st on the left and then on the right. This was done from the thigh incision towards the vaginal incision. Sling was connected to the trocars and brought out the thigh incision. I tensioned the sling appropriately. I cut and the plastic sheaths. I closed the incision with 2 0 Vicryl. I then performed cystoscopy. There was no tumors or surgical artifact. Both ureters were seen to excrete clear yellow urine. There is no surgical artifact in the bladder or urethra. I cut the excess sling material. Close incision with glue. She was awakened and transferred to PACU in stable condition. Implants Sacral colpopexy mesh Urethral sling Estimated Blood Loss 20 Packing No Pathology None sent Complications No immediate complications Condition Stable Disposition PACU
[2024-12-29] MEDS: ONDANSETRON INJ 4 MG/2 ML VIAL IV PUSH ×2 (10:43→15:27)
[2024-12-29] MEDS: fentaNYL CITRATE INJ (*CRX) 100 MCG/2 ML VIAL 25 MCG IV PUSH ×2 (10:43→10:45)
--- NOTE | 2024-12-29 11:25 | PC.NURSE ---
Patient transferred to post room #289 via bed. Support person present. Oriented to unit, room, information board, and admission packet. Patient verbalizes understanding.
[2024-12-29] MEDS: KCL 20 MEQ/D5/0.45% SOD CHL 1,000 ML 100 ML IV CONT ×2 (12:52→23:54)
[2024-12-29] MEDS: ACETAMINOPHEN 325 MG TABLET 650 MG PO ×2 (12:55→19:16)
[2024-12-29] MEDS: ENOXAPARIN 30 MG/0.3 ML SYRINGE SUB-Q (12:56)
[2024-12-29] MEDS: ceFAZolin 1 GM in SODIUM CHLORIDE 0.9% IV 50 ML 100 ML IVPB (16:21)
[2024-12-29] MEDS: PROMETHAZINE HCL 25 MG/ML AMPUL 12.5 MG IV PUSH (19:15)
[2024-12-30] MEDS: ceFAZolin 1 GM in SODIUM CHLORIDE 0.9% IV 50 ML 100 ML IVPB ×2 (00:02→09:07)
[2024-12-30] MEDS: metroNIDAZOLE 500 MG/ISO 100ML 500 MG/100 ML BAG 100 MG IVPB ×2 (01:24→09:49)
[2024-12-30 03:43] VITALS: BP 136/60; PULSE 80; RESP 14; TEMP 37.2; O2SAT 94
[2024-12-30] MEDS: ACETAMINOPHEN 325 MG TABLET 650 MG PO ×2 (03:44→09:06)
--- NOTE | 2024-12-30 05:07 | PM.GYNPNOP ---
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 - Complete procidentia with cervix 6-7 cm beyond the introitus. - Atrophic vaginal tissues. - Urethral mobility noted. 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 PUNCH MACHINE OPERATOR - PN: Obj Data Vital Signs Vital Signs: Vital Signs - 24 hr 12/29/24 06:30 12/29/24 10:05 12/29/24 10:20 Temperature 98.6 F 97.9 F Pulse Rate 89 67 66 Respiratory Rate 16 11 L 12 Blood Pressure 138/84 124/57 L 138/64 Pulse Oximetry 100 100 100 Oxygen Delivery Room Air Simple Face Mask Simple Face Mask Oxygen Flow Rate 8 8 12/29/24 10:35 12/29/24 10:50 12/29/24 11:05 Temperature 97 F L Pulse Rate 68 65 86 Respiratory Rate 20 17 23 H Blood Pressure 121/71 122/62 134/65 Pulse Oximetry 100 100 100 Oxygen Delivery Room Air Nasal Cannula Nasal Cannula Oxygen Flow Rate 2 2 12/29/24 11:50 12/29/24 11:50 12/29/24 16:30 Temperature 98 F Pulse Rate 70 Respiratory Rate 20 Blood Pressure 150/63 H Pulse Oximetry 100 Oxygen Delivery Room Air Room Air Oxygen Flow Rate 12/29/24 16:30 12/29/24 19:15 12/29/24 19:29 Temperature 98 F 98.1 F Pulse Rate 98 86 Respiratory Rate 18 14 Blood Pressure 145/66 H 130/65 Pulse Oximetry 98 97 Oxygen Delivery Room Air Oxygen Flow Rate 12/29/24 23:31 12/30/24 03:43 12/30/24 03:43 Temperature 98.5 F 99 F Pulse Rate 88 80 Respiratory Rate 14 14 Blood Pressure 141/70 H 136/60 Pulse Oximetry 97 94 Oxygen Delivery Room Air Oxygen Flow Rate Intake/Output Intake/Output: Intake & Output 12/27/24 12/28/24 12/29/24 12/30/24 23:59 23:59 23:59 23:59 Intake Total 2650 551.7 Output Total 1740 650 Balance 910 -98.3 Meds/Results Medications: Active Medications Generic Name Dose Route Start Last Admin Trade Name Freq PRN Reason Stop Dose Admin Acetaminophen 650 mg 12/29/24 11:16 12/30/24 03:44 Acetaminophen 325 Mg Tablet PO 650 mg Q4H PRN Administration Mild Pain (1-3) or Fever Hydrocodone Bitart/Acetaminophen 1 tab 12/29/24 11:16 Hydrocodone/Acetaminophen (*Crx) 5-325 Mg Tablet PO Q4H PRN Pain Rated 4-5 Amlodipine Besylate 10 mg 12/29/24 12:00 12/29/24 16:54 Amlodipine Besylate 10 Mg Tablet BY MOUTH Not Given DAILY JANICE Cephalexin HCl 500 mg 12/30/24 09:00 Cephalexin 500 Mg Capsule PO QID JANICE Diphenhydramine HCl 25 mg 12/29/24 11:16 Diphenhydramine Hcl Inj 50 Mg/Ml Vial IV PUSH Q6H PRN Itching Docusate Sodium 100 mg 12/29/24 11:16 12/29/24 16:53 Docusate Sodium 100 Mg Capsule PO Not Given DAILY JANICE Enoxaparin Sodium 30 mg 12/29/24 11:16 12/29/24 12:56 Enoxaparin 30 Mg/0.3 Ml Syringe SUB-Q 30 mg DAILY JANICE Administration Potassium Chloride/Dextrose/Sod Cl 1,000 mls @ 100 mls/hr 12/29/24 11:16 12/30/24 03:55 Kcl 20 Meq/D5/0.45% Sod Chl IV CONT 0 mls/hr .Q10H JANICE Infusion Cefazolin Sodium 1 gm/ Sodium 50 mls @ 100 mls/hr 12/30/24 00:00 12/30/24 00:32 Chloride IVPB 12/30/24 08:29 Infused Q8H JANICE Infusion Metronidazole 500 mg in 100 mls @ 100 mls/hr 12/30/24 01:00 12/30/24 02:24 Flagyl 500 Mg/Iso Soln 100 Ml IVPB Infused Q8H JANICE Infusion Ketorolac Tromethamine 15 mg 12/29/24 11:16 12/29/24 16:21 Ketorolac 15 Mg/Ml Vial (*Bkc) IV PUSH 15 mg Q8H PRN Administration Pain Rated 5 or Less Morphine Sulfate 2 mg 12/29/24 11:16 Morphine Sulfate (*Crx) 2 Mg/Ml Inj IV PUSH Q2H PRN Pain Rated 6 or Greater Ondansetron HCl 4 mg 12/29/24 11:16 12/29/24 15:27 Ondansetron Inj 4 Mg/2 Ml Vial IV PUSH 4 mg Q6H PRN Administration Nausea And Vomiting Promethazine HCl 12.5 mg 12/29/24 19:04 12/29/24 19:15 Promethazine Hcl 25 Mg/Ml Ampul IV PUSH 12.5 mg Q4H PRN Administration Nausea And Vomiting Zolpidem Tartrate 5 mg 12/29/24 11:16 Zolpidem Tartrate (*Crx) 5 Mg Tablet PO HS PRN Insomnia
--- NOTE | 2024-12-30 05:40 | PC.NURSE ---
0510- pt up out of bed with standby assistance, taking few steps in room. Pt now sitting up in chair without difficulty. Call light and drink within reach.
--- NOTE | 2024-12-30 05:40 | PC.NURSE ---
0530- This RN assisted pt to restroom to void- 300mls clear yellow urine with few reddish mucous strings noted. Vaginal bleeding scant, brown. Assisted pt back into bed without difficulty. Pt states she has no pain at this time.
--- NOTE | 2024-12-30 08:21 | WPDANESPN ---
Anes - Prog Note Post-Op Date/Time: 12/30/24 08:21 Cardiovascular status: normal Respiratory status: normal Airway patency: baseline Mental status: baseline Vital Signs: Last Vital Signs Temp 37.2 C 12/30/24 03:43 Pulse 80 12/30/24 03:43 Resp 14 12/30/24 03:43 BP 136/60 12/30/24 03:43 Pulse Ox 94 12/30/24 03:43 O2 Del Method Room Air 12/30/24 03:43 O2 Flow Rate 2 12/29/24 11:05 Pain Score (VAS): 3 I/O: Intake & Output 12/29/24 12/30/24 12/30/24 23:59 07:59 15:59 Intake Total 1900 551.7 Output Total 1650 950 Balance 250 -398.3 Patient Feedback: Patient satisfied with anesthetic care.
[2024-12-30 08:35] VITALS: BP 122/55; PULSE 89; RESP 16; TEMP 37.2; O2SAT 97
[2024-12-30] MEDS: CEPHALEXIN 500 MG CAPSULE PO (09:04)
[2024-12-30] MEDS: DOCUSATE SODIUM 100 MG CAPSULE PO (09:04)
[2024-12-30] MEDS: ENOXAPARIN 30 MG/0.3 ML SYRINGE SUB-Q (09:07)
== END 2024-12-30 11:40 | disposition home or self-care (01) ==
LOC: ANHSURGERY 07:27 → ANHOB2 11:55
PROVIDERS: Obstetrics & Gynecology; PCP Nurse Practitioner Adult Health; Visit Provider Urology
PROC: (CPT 57425; principal; 2024-12-29 07:30)
PROC: 0UT94ZZ Resection of Uterus, Percutaneous Endoscopic Approach (ICD-10-PCS; CPT 57425; 2024-12-29 07:30)
DX: N81.4 Uterovaginal prolapse, unspecified (principal); N39.3 Stress incontinence (female) (male); N84.0 Polyp of corpus uteri; N80.03 Adenomyosis of the uterus; N83.312 Acquired atrophy of left ovary; N83.311 Acquired atrophy of right ovary; N83.292 Other ovarian cyst, left side; E66.9 Obesity, unspecified; Z68.31 Body mass index [BMI] 31.0-31.9, adult
CPT/HCPCS: 58542; 57425; 57288; S2900 ×2; 88307; 99199; J0690; A9270; C1771; C1781; J1100; J1171; J1650; J1836; J1885; J2003; J2405; J2550; J2704; J3010; J3480; J7030; J7120

== ENCOUNTER 2025-04-01 09:32 | Outpatient (CLI) | payer MEDICARE, SELFPAY ==
[2025-04-01 19:42] LABS: Alanine Aminotransferase 16 U/L (6-35); Albumin Level 4.3 g/dL (3.5-5.1); Alkaline Phosphatase 96 U/L (38-126); Anion Gap 4 mmol/L (4-12); Aspartate Amino Transferase 56 U/L (14-36); Bilirubin,Total 0.8 mg/dL (0.2-1.3); Blood Urea Nitrogen 21 mg/dL (7-17); Calcium 9.7 mg/dL (8.4-10.2); Carbon Dioxide 27 mmol/L (22-30); Chloride 106 mmol/L (98-107); Cholesterol 195 mg/dL (0-200); Estimated Glomerular Filt Rate 54; Glucose 94 mg/dL (65-110); HDL Direct 64 mg/dL; Potassium 4.6 mmol/L (3.4-5.0); Sodium 137 mmol/L (137-145); Total Protein 7.5 g/dL (6.3-8.2); Triglycerides 147 mg/dL (<150)
== END 2025-04-01 09:33 | disposition home or self-care (01) ==
PROVIDERS: PCP Nurse Practitioner Adult Health; Visit Provider Nurse Practitioner Adult Health
DX: I10 Essential (primary) hypertension (principal)
CPT/HCPCS: 36415; 80053; 80061